=== PATIENT | female | born 1990 | race Caucasian/White ===

== ENCOUNTER 2018-03-02 14:33 | Observation (INO) | payer MEDICAID ==
[~2018-03-02] VITALS: Ht 160 cm; Wt 84.8 kg
[2018-03-02] MEDS ORDERED: TERBUTALINE 1 MG/ML VIAL SUBQ ONE ×2 (14:46→15:25)
[2018-03-02] MEDS ORDERED: TERBUTALINE 1 MG/ML VIAL SUBQ SCH (15:00)
[2018-03-02 15:43] VITALS: BP 114/75
[2018-03-02] MEDS ORDERED: PREN-380 PO (17:32)
== END 2018-03-02 17:50 | disposition home or self-care (01) ==
LOC: MLD 14:33
PROVIDERS: ADMIT Obstetrics & Gynecology; ATTEND Obstetrics & Gynecology
DX: O62.9 Abnormality of forces of labor, unspecified (principal); Z3A.28 28 weeks gestation of pregnancy
CPT/HCPCS: 81000; 96372; G0378; J3105

== ENCOUNTER 2018-03-03 01:05 | Observation (INO) | payer MEDICAID ==
[~2018-03-03] VITALS: Ht 160 cm; Wt 84.8 kg
[~2018-03-03 01:05] MED LIST: PREN-380 PO
[2018-03-03 01:25] VITALS: BP 115/68
[2018-03-03] MEDS ORDERED: NALBUPHINE 10 MG/ML AMP IVP PRN ×2 (01:55→05:45)
[2018-03-03] MEDS ORDERED: NALBUPHINE 10 MG/ML AMP ONE ×2 (02:24→06:27)
[2018-03-03] MEDS: LACTATED RINGERS 1,000 ML IV SCH ×2 (02:26→08:27)
[2018-03-03] MEDS ORDERED: TERBUTALINE 1 MG/ML VIAL SUBQ ONE (03:45)
[2018-03-03] MEDS ORDERED: TERBUTALINE 1 MG/ML VIAL SUBQ SCH (03:55)
[2018-03-03] MEDS ORDERED: AMPICILLIN 2,000 MG in NACL 0.9% 100 ML IV SCH (04:00)
[2018-03-03] MEDS ORDERED: BETAMETH ACET/BETAMETH NA PH 30 MG/5 ML VIAL IM ONE ×2 (04:02→16:19)
[2018-03-03] MEDS ORDERED: AMPICILLIN 2,000 MG VIAL ONE (04:03)
[2018-03-03] MEDS: BETAMETH ACET/BETAMETH NA PH 30 MG/5 ML VIAL IM SCH ×2 (04:11→16:32)
[2018-03-03 04:27] LABS: HEMATOCRIT 34.4 % (36-48); HEMOGLOBIN 11.2 g/dL (12.0-16.0); MEAN CORPUSCULAR HEMOGLOBIN 30 pg (27-31); MEAN CORPUSCULAR HGB CONC 33 g/dL (33-37); MEAN CORPUSCULAR VOLUME 92.9 fL (80-94); PLATELET COUNT (AUTO) 232 K/uL (140-450); RED CELL DISTRIBUTION WIDTH 13.2 % (11.6-13.7)
[2018-03-03 04:29] LABS: APPEARANCE,URINE CLEAR (CLEAR); BILIRUBIN,URINE NEGATIVE (NEGATIVE); BLOOD, URINE NEGATIVE (NEGATIVE); COLOR,URINE YELLOW (YELLOW); LEUKOCYTE ESTERASE ,URINE NEGATIVE (NEGATIVE); NITRITE, URINE NEGATIVE (NEGATIVE); UGLUCOSE NEGATIVE (NEGATIVE)
[2018-03-03 04:41] LABS: BARBITURATE, URINE NEG. ng/ml (NEG <=200); BENZODIAZEPINE, URINE NEG. ng/mL (NEG <=200); CANNABINOID, URINE NEG. ng/mL (NEG <=50); COCAINE, URINE NEG. ng/mL (NEG <=300); OPIATE, URINE NEG. ng/mL (NEG <=2000); PHENCYCLIDINE SCREEN,URINE NEG. ng/mL (NEG <=25)
[2018-03-03 04:42] LABS: ALBUMIN 2.7 g/dL (3.4-5.0); ANION GAP 14.5 (8-16); CARBON DIOXIDE 22.4 mmol/L (21-32); CREATININE 0.5 mg/dL (0.6-1.3); MAGNESIUM 1.6 mg/dL (1.8-2.4); TOTAL BILIRUBIN 0.4 mg/dL (0.0-1.0)
[2018-03-03 04:49] LABS: WHITE BLOOD COUNT (AUTO) 15.6 K/uL (4.8-10.8)
[2018-03-03 04:50] LABS: EOSINOPHILS % (MANUAL) 1 % (0-4); LYMPHOCYTES % (MANUAL) 5 % (20-46); MONOCYTES % (MANUAL) 8 % (5-12)
[2018-03-03 04:56] LABS: POTASSIUM 2.9 mmol/L (3.5-5.1)
[2018-03-03] MEDS: NIFEdipine 10 MG CAPLF PO SCH ×5 (04:57→13:27)
[2018-03-03] MEDS ORDERED: NIFEdipine 10 MG CAPLF ONE ×4 (04:59→09:44)
[2018-03-03 05:04] LABS: RBC,URINE 0-5 (RARE) /HPF (0-5); WBC,URINE 0-5 (RARE) /HPF (0-5)
[2018-03-03] MEDS ORDERED: POTASSIUM CHL 20 MEQ/NACL 0.9% 1,000 ML IV SCH (05:10)
[2018-03-03] MEDS ORDERED: KCL 20 MEQ/WATER INJ PREMIX 100 ML IV ONE (05:22)
[2018-03-03] MEDS ORDERED: MAG SULF 2000 MG/WATER PREMIX 50 ML IV ONE ×2 (05:25)
[2018-03-03] MEDS ORDERED: PROMETHAZINE 25 MG/ML VIAL IM PRN (06:00)
[2018-03-03] MEDS ORDERED: PROMETHAZINE 25 MG/ML VIAL ONE (06:27)
[2018-03-03] MEDS ORDERED: AMPICILLIN 1,000 MG VIAL ONE ×3 (08:21→16:52)
[2018-03-03] MEDS: AMPICILLIN 1,000 MG in NACL 0.9% 50 ML IV SCH ×3 (08:24→16:56)
--- NOTE | 2018-03-03 08:47 | NUR ---
PATIENT HAS BEEN SCREENED AND CATEGORIZED LOW NUTRITION RISK. PATIENT WILL BE SEEN WITHIN 7 DAYS OF ADMISSION. 03/09/[address]
[2018-03-03 13:39] LABS: ALBUMIN 2.7 g/dL (3.4-5.0); CARBON DIOXIDE 19.6 mmol/L (21-32); CREATININE 0.5 mg/dL (0.6-1.3); POTASSIUM 3.6 mmol/L (3.5-5.1); TOTAL BILIRUBIN 0.4 mg/dL (0.0-1.0)
[2018-03-03] MEDS ORDERED: ACETAMINOPHEN 325 MG TAB PO PRN (17:10)
[2018-03-03] MEDS ORDERED: ACETAMINOPHEN 325 MG TAB ONE (17:22)
[2018-03-03 17:38] VITALS: BP 114/63
[2018-03-04 09:17] LABS: HEPATITIS B SURFACE ANTIGEN Negative (Negative)
== END 2018-03-03 18:10 | disposition home or self-care (01) ==
LOC: MLD 01:05
PROVIDERS: ADMIT Obstetrics & Gynecology; ATTEND Obstetrics & Gynecology
DX: O62.9 Abnormality of forces of labor, unspecified (principal); Z3A.22 22 weeks gestation of pregnancy
CPT/HCPCS: 36415; 76805; 80053; 80305; 81001; 83735; 85025; 86592; 86703; 86762; 86886; 86900; 86901; 87340; 96361; 96365; 96372; 96375; 96376; G0378; J0290; J0702; J2300; J2550; J3105; J3480; J7120; Q0092; J3475

== ENCOUNTER 2023-07-25 10:53 | Emergency (ER) | payer MEDICAID ==
[~2023-07-25] VITALS: Ht 157.5 cm; Wt 81.6 kg
[2023-07-25 11:03] VITALS: BP 122/58; PULSE 83; RESP 16; TEMP 97.5; O2SAT 98
== END 2023-07-25 12:14 | disposition home or self-care (01) ==
LOC: MED 10:53
DX: S01.112D Laceration without foreign body of left eyelid and periocular area, subsequent encounter (principal); R55 Syncope and collapse; Z48.02 Encounter for removal of sutures; Z79.899 Other long term (current) drug therapy; X58.XXXD Exposure to other specified factors, subsequent encounter
CPT/HCPCS: 99281